=== PATIENT | male | born 1955 | race Caucasian/White ===

== ENCOUNTER 2020-10-20 16:34 | Emergency (ER) | payer OTHER, SELFPAY ==
[2020-10-20 16:55] VITALS: BP 179/80; PULSE 78; RESP 18; TEMP 37; O2SAT 98; BMI 26.3
--- NOTE | 2020-10-20 17:08 | DI.CT.S_ITS ---
PROCEDURE: CT FACIAL BONES WO CON INDICATIONS: Head injury TECHNIQUE: Noncontrast 2.5 mm thick axial images acquired from the mandible through the frontal sinuses, with coronal and sagittal reformatting. For radiation dose reduction, the following was used: automated exposure control, adjustment of mA and/or kV according to patient size. COMPARISON: [facility], CT, CT CERVICAL SPINE WO CON, 10/20/2020, 17:24. FINDINGS: Image quality: Excellent. Bones and teeth: There is a comminuted, moderately displaced fracture seen involving the right mandible, near the angle of the mandible. The fracture lines are seen near the alveolar canal. No TMJ dislocation can be seen. No additional mandible fracture can be seen. Moderately displaced fractures are seen with comminution of the lateral wall of the right maxillary sinus. There is associated blood within the right maxillary sinus. The right orbital floor appears intact. The medial wall of the right maxillary sinus is within normal limits. Orbital mack are intact. Nasal bones and septum are intact. Zygomatic arches are intact. Pterygoid plates are intact. Visualized portions of the skull base and auditory canals are intact. Sinuses: Mucosal thickening is seen, which is worst within the right maxillary sinus. Soft tissues: Soft tissue swelling is seen on the right. Soft tissue gas can be seen on the right. Vascular: Visualized vascular structures appear normal in the absence of contrast. Bony vascular foramina and canals are intact. IMPRESSION: There is a comminuted fracture seen with moderate displacement of the right mandible near the angle. This is seen near the alveolar canal. Please correlate with nerve function. There is a moderately displaced, comminuted fracture of the lateral wall of the right maxillary sinus, with blood within the sinuses. On these images, no nat intracranial hemorrhage can be seen. Dictated by: Mike Reich M.D. on 10/20/2020 at 17:07 Approved by: Mike Reich M.D. on 10/20/2020 at 17:11
--- NOTE | 2020-10-20 17:12 | DI.CT.S_ITS ---
PROCEDURE: CT CERVICAL SPINE WO CON INDICATIONS: head injury TECHNIQUE: Noncontrast 3 mm thick sections acquired from the skull base to the T4 level. Sagittal and coronal reformats were then constructed. For radiation dose reduction, the following was used: automated exposure control, adjustment of mA and/or kV according to patient size. COMPARISON: [facility], CT, CT FACIAL BONES WO CON, 10/20/2020, 17:24. FINDINGS: Image quality: Excellent. Bones: No fractures or dislocations. Visualized superior ribs are intact. Degenerative changes are seen, with moderate to severe disc space narrowing at C4-C5, C5-C6, and C6-C7. Endplate irregularity and sclerosis are seen. Bridging anterior osteophytes are seen C4 through C7. Post erected endplate osteophytes are seen at these levels. Milder degenerative changes are seen elsewhere. Soft tissues: Prevertebral soft tissues are normal in thickness. No paravertebral hematomas. No apical pneumothoraces. IMPRESSION: No acute fractures are seen. Relatively prominent lower cervical spine degenerative changes are seen. Dictated by: Mike Reich M.D. on 10/20/2020 at 17:05 Approved by: Mike Reich M.D. on 10/20/2020 at 17:07
[2020-10-20 17:14] VITALS: PULSE 68; RESP 17; O2SAT 99
[2020-10-20 17:33] VITALS: PULSE 68; RESP 15; O2SAT 99
[2020-10-20 18:00] VITALS: PULSE 67; RESP 17; O2SAT 100
[2020-10-20 18:30] VITALS: PULSE 62; RESP 15; O2SAT 99
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
[2020-10-20 18:48] VITALS: BP 145/67; PULSE 63; RESP 16; O2SAT 99
[2020-10-20] MEDS: HYDROCODONE/ACET 5/325 PREPACK 1 BOTTLE MISC (19:41)
== END 2020-10-20 20:15 | disposition home or self-care (01) ==
PROVIDERS: Emergency Provider Emergency Medicine
DX: S02.609A Fracture of mandible, unspecified, initial encounter for closed fracture (principal); S02.40CA Maxillary fracture, right side, initial encounter for closed fracture; W19.XXXA Unspecified fall, initial encounter
CPT/HCPCS: 70450; 70486; 72125; 82962; 99283; 99284

== ENCOUNTER → 2022-05-02 07:27 | Outpatient (CLI) | payer OTHER, SELFPAY ==
[2022-05-02 08:30] LABS: Alanine Aminotransferase 29 IU/L (<50); Albumin Globulin Ratio 1.5 (1.0-2.8); Alkaline Phosphatase 65 U/L (38-126); Aspartate Aminotransferase 25 IU/L (17-59); BUN Creatinine Ratio 21.9 (6-22); Bilirubin Total 0.4 mg/dL (0.2-1.3); Blood Urea Nitrogen 28 mg/dL (9-20); Calcium 8.8 mg/dL (8.4-10.2); Carbon Dioxide 27 mmol/L (22-32); Chloride 103 mmol/L (98-107); Cholesterol 144 mg/dL (140-199); Estimated Glomerular Filt Rate > 60 mL/min (>60); Globulin 2.7 g/dL (1.7-4.1); Glucose 120 mg/dL (80-110); HDL Cholesterol 42 mg/dL (40-60); HEMOLYSIS < 15 (0-50); LDL Cholesterol Calculated 75 mg/dL (<100); Sodium 136 mmol/L (137-145); Total Protein 6.7 g/dL (6.3-8.2); Triglycerides 137 mg/dL (35-150)
[2022-05-02 08:31] LABS: Hemoglobin A1C% w Est Avg Glu 7.8 % (4.0-6.0); Potassium 5.5 mmol/L (3.4-5.1)
== END ==
PROVIDERS: Referring Provider Family Medicine Sports Medicine; Visit Provider Family Medicine Sports Medicine
DX: E11.9 Type 2 diabetes mellitus without complications (principal)
CPT/HCPCS: 36415; 80053; 80061; 83036